=== PATIENT | male | born 1955 | race Caucasian/White ===

== ENCOUNTER → 2023-11-01 | Outpatient (CLI) | payer MEDICARE ==
[~2023-11-01] MED LIST: AEC81 PO; ASCO1CAP5 PO; LISI20TA24 PO; ROSU40TA21 PO; ZINC50TA15 PO
[2023-11-01 12:27] LABS: CHOLESTEROL 149 mg/dL (<200); HDL CHOLESTEROL 47 mg/dL (29-71); LDL DIRECT 90 mg/dL (0-99); TRIGLYCERIDES 80 mg/dL (30-200)
== END | disposition home or self-care (01) ==
LOC: LAB 08:40
PROVIDERS: ATTEND Internal Medicine Cardiovascular Disease
DX: E78.5 Hyperlipidemia, unspecified (principal)
CPT/HCPCS: 36415; 80061

== ENCOUNTER → 2024-04-07 | Outpatient (CLI) | payer MEDICARE ==
[~2024-04-07] MED LIST changes: -ROSU40TA21 PO; +ROSU40TA70 PO
[2024-04-07 12:42] LABS: CHOLESTEROL 214 mg/dL (<200); HDL CHOLESTEROL 51 mg/dL (29-71); LDL DIRECT 149 mg/dL (0-99); TRIGLYCERIDES 73 mg/dL (30-200)
== END | disposition home or self-care (01) ==
LOC: LAB 09:57
PROVIDERS: ATTEND Internal Medicine Cardiovascular Disease
DX: E78.5 Hyperlipidemia, unspecified (principal)
CPT/HCPCS: 36415; 80061